=== PATIENT | female | born 1950 | race Caucasian/White ===

== ENCOUNTER 2020-12-13 11:42 | Emergency (ER) | payer MEDICARE, SELFPAY ==
[~2020-12-13 11:42] MED LIST: GLUCOPHAGE500 MG PO; IBUPROFEN400 MG PO; LOPRESSOR 25 MG25 MG PO; MAXZIDE 37.5/21 EACH PO
[2020-12-13] MEDS ORDERED: HYDROCODON-ACE1 EAC4 PO (15:49)
== END 2020-12-13 16:20 | disposition home or self-care (01) ==
LOC: ER1 11:42
DX: M54.32 Sciatica, left side (principal); I10 Essential (primary) hypertension; E11.9 Type 2 diabetes mellitus without complications
CPT/HCPCS: 73502; 93971; 99284

== ENCOUNTER → 2021-01-22 | Outpatient (CLI) | payer MEDICARE, SELFPAY ==
[~2021-01-22] MED LIST changes: +HYDROCODON-ACE1 EAC4 PO
== END ==
LOC: EMI 09:20
DX: M51.16 Intervertebral disc disorders with radiculopathy, lumbar region (principal); M25.78 Osteophyte, vertebrae; M51.27 Other intervertebral disc displacement, lumbosacral region
CPT/HCPCS: 72148

== ENCOUNTER → 2021-02-13 | Outpatient (CLI) | payer MEDICARE, OTHER ==
[2021-02-13 11:46] LABS: HEMOGLOBIN 13.3 gm/dl (12.3-15.3); RED BLOOD COUNT 4.21 M/UL (4.00-5.10); WHITE BLOOD COUNT 13.2 K/UL (4.5-11.0)
== END ==
LOC: OPSV 11:00 → OPSV2 11:00 → EDSTATUS 11:00
PROVIDERS: Orthopaedic Surgery
DX: Z01.818 Encounter for other preprocedural examination (principal); M51.17 Intervertebral disc disorders with radiculopathy, lumbosacral region
CPT/HCPCS: 36415; 71046; 80048; 81001; 83036; 85027; 87086; 93005

== ENCOUNTER → 2021-02-18 | Outpatient (CLI) | payer MEDICARE, SELFPAY | LOC: LAB 11:46 | PROVIDERS: Orthopaedic Surgery | DX: Z01.812 Encounter for preprocedural laboratory examination (principal) | CPT/HCPCS: 36415; 80048; 86850; 86900; 86901 ==

== ENCOUNTER → 2021-02-19 | Day surgery (SDC) | payer MEDICARE, SELFPAY | END | disposition home or self-care (01) | LOC: OR 06:13 | PROVIDERS: Orthopaedic Surgery | PROC: 0SB20ZZ Excision of Lumbar Vertebral Disc, Open Approach (ICD-10-PCS; principal; 2021-02-19 07:30) | DX: M51.27 Other intervertebral disc displacement, lumbosacral region (principal); M54.16 Radiculopathy, lumbar region; I10 Essential (primary) hypertension; E11.9 Type 2 diabetes mellitus without complications; E78.5 Hyperlipidemia, unspecified; Z79.84 Long term (current) use of oral hypoglycemic drugs; Z79.899 Other long term (current) drug therapy | CPT/HCPCS: 72020; 76000; 82962; J0360; J0690; J1040; J1100; J2001; J2250; J2405; J2704; J2710; J3010; J3370; J7040; J7050; J7120 ==